=== PATIENT | female | born 1975 | race Caucasian/White ===

== ENCOUNTER 2021-04-22 01:54 | Observation (INO) | payer OTHER ==
[~2021-04-22] VITALS: Ht 157.5 cm; Wt 100.0 kg
[~2021-04-22 01:54] MED LIST: LEVOFLOXACIN250 MG PO; OXYCODONE HCL10 MG PO
[2021-04-22 02:27] LABS: HEMOGLOBIN 11.3 gm/dl (12.3-15.3); RED BLOOD COUNT 4.57 M/UL (4.00-5.10); WHITE BLOOD COUNT 8.2 K/UL (4.5-11.0)
[2021-04-22 02:52] LABS: BUN/CREATININE RATIO 15 (0-10)
[2021-04-22] MEDS ORDERED: VISTARIL25 MG PO (13:10)
[2021-04-22] MEDS ORDERED: IBUPROFEN800 MG PO (13:10)
[2021-04-22] MEDS ORDERED: PROTONIX40 MG PO (13:11)
[2021-04-22] MEDS ORDERED: SEROQUEL50 MG PO (13:11)
[2021-04-22] MEDS ORDERED: REMERON30 MG PO (13:11)
[2021-04-22] MEDS ORDERED: BUPRENORPHIN-N1 EACH SL (13:26)
[2021-04-22] MEDS ORDERED: LIBRIUM CAP 1010 MG PO (13:33)
[2021-04-22] MEDS ORDERED: CYMBALTA60 MG PO (15:34)
[2021-04-22] MEDS ORDERED: NEURONTIN800 MG PO (15:34)
[2021-04-22] MEDS ORDERED: LIORESAL TAB 1010 MG PO (15:35)
[2021-04-23 04:31] LABS: WHITE BLOOD COUNT 8.7 K/UL (4.5-11.0)
[2021-04-23 04:33] LABS: HEMOGLOBIN 9.3 gm/dl (12.3-15.3); RED BLOOD COUNT 3.72 M/UL (4.00-5.10)
[2021-04-23 04:54] LABS: BUN/CREATININE RATIO 23 (0-10)
[2021-04-23] MEDS ORDERED: CIPRO250 MG PO (12:52)
== END 2021-04-23 14:10 | disposition home or self-care (01) ==
LOC: ER1 01:54 → CCU 10:42 → CDU 10:42 → CCU 12:17
PROVIDERS: Emergency Medicine; Physician Assistant Medical; ADMIT Internal Medicine
DX: G92 Toxic encephalopathy (principal); T50.7X5A Adverse effect of analeptics and opioid receptor antagonists, initial encounter; T42.6X5A Adverse effect of other antiepileptic and sedative-hypnotic drugs, initial encounter; F17.210 Nicotine dependence, cigarettes, uncomplicated; J44.9 Chronic obstructive pulmonary disease, unspecified; Z20.822 Contact with and (suspected) exposure to COVID-19; Z89.512 Acquired absence of left leg below knee; Z88.1 Allergy status to other antibiotic agents; Z88.0 Allergy status to penicillin; Z88.2 Allergy status to sulfonamides; Z88.6 Allergy status to analgesic agent; Y92.89 Other specified places as the place of occurrence of the external cause
CPT/HCPCS: 36415; 36600; 51701; 70450; 71045; 80048; 80053; 80307; 81001; 82803; 83605; 83690; 83735; 84703; 85025; 85027; 87040; 87077; 87086; 87186; 93005; 94664; 94760; 96365; 96366; 96367; 96368; 96372; 96375; 96376; 99285; G0378; G0480; J1630; J1650; J1956; J2060; U0002

== ENCOUNTER 2021-04-26 08:42 | Emergency (ER) | payer OTHER ==
[~2021-04-26 08:42] MED LIST changes: +BUPRENORPHIN-N1 EACH SL; +CIPRO250 MG PO; +CYMBALTA60 MG PO; +IBUPROFEN800 MG PO; +LIBRIUM CAP 1010 MG PO; +LIORESAL TAB 1010 MG PO; +NEURONTIN800 MG PO; +PROTONIX40 MG PO; +REMERON30 MG PO; +SEROQUEL50 MG PO; +VISTARIL25 MG PO
[2021-04-26] MEDS ORDERED: MEDROL DOSEPAK 24 MG PO (10:54)
== END 2021-04-26 11:35 | disposition home or self-care (01) ==
LOC: ER1 08:42
DX: M51.86 Other intervertebral disc disorders, lumbar region (principal); Z90.49 Acquired absence of other specified parts of digestive tract; Z90.710 Acquired absence of both cervix and uterus; Z88.0 Allergy status to penicillin; Z88.6 Allergy status to analgesic agent; F17.210 Nicotine dependence, cigarettes, uncomplicated; Z79.899 Other long term (current) drug therapy
CPT/HCPCS: 72131; 96372; 99284; J1100